=== PATIENT | female | born 1965 | race Caucasian/White ===

== ENCOUNTER 2022-07-03 14:46 | Emergency (ER) | payer OTHER ==
[2022-07-03 15:55] VITALS: BP 150/76; PULSE 90; RESP 18; TEMP 98.1; BMI 26.6
== END 2022-07-03 17:05 | disposition home or self-care (01) ==
LOC: JERFT 14:46 → JER 14:46 → JERFT 17:05
DX: B02.9 Zoster without complications (principal)
CPT/HCPCS: 99281-25

== ENCOUNTER 2024-07-02 22:28 | Emergency (ER) | payer SELFPAY ==
[2024-07-02 22:37] VITALS: BP 158/95; PULSE 76; RESP 16; TEMP 98.4; BMI 34.7
[2024-07-02] MEDS ORDERED: CLINDAMYCIN HCL 300 MG CAPSULE PO ONE (23:56)
[2024-07-03] MEDS ORDERED: CLINDAMYCIN HCL 150 MG CAPSULE (FP) ONE (00:08)
[2024-07-03] MEDS: CLINDAMYCIN HCL 300 MG CAPSULE PO ONE (00:10)
== END 2024-07-03 00:19 | disposition home or self-care (01) ==
LOC: FER 22:28
DX: R04.2 Hemoptysis (principal)
CPT/HCPCS: 71046-TC-FY; 99283-25